=== PATIENT | male | born 1965 | race Caucasian/White ===

== ENCOUNTER 2024-07-17 07:05 | Day surgery (SDC) | payer BC ==
[~2024-07-17] VITALS: Ht 165.1 cm; Wt 77.9 kg
[~2024-07-17 07:05] MED LIST: LISI20 PO; Lactated Ringer's 1,000 ML ONE
[2024-07-17] MEDS ORDERED: Lactated Ringer's 1,000 ML IV ONE ×2 (07:41→08:25)
[2024-07-17] MEDS ORDERED: propofoL 20 ML IV ONE ×3 (07:41→09:07)
[2024-07-17] MEDS ORDERED: OMEP20ER (07:59)
[2024-07-17 10:03] VITALS: BP 124/85
--- NOTE | 2024-07-17 10:04 | NUR ---
07/17/24 1004 Sima Rai PT. VERBALIZES ABD. FEELING CRAMPY BUT TOLERABLE BUT HAS GOTTEN BETTER SINCE WAKING UP IN THE ENDO ROOM. PT. INSTRUCTED TO PASS OUT AIR IF FELT THE NEED BUT EVENTUALLY THE AIR WILL ABSORB.
== END 2024-07-17 09:53 | disposition home or self-care (01) ==
LOC: ORSCSDS 07:05
PROVIDERS: Surgery
PROC: 0DBN8ZX Excision of Sigmoid Colon, Via Natural or Artificial Opening Endoscopic, Diagnostic (ICD-10-PCS; principal; 2024-07-17 08:45)
DX: Z12.11 Encounter for screening for malignant neoplasm of colon (principal); D12.5 Benign neoplasm of sigmoid colon; K21.9 Gastro-esophageal reflux disease without esophagitis; I10 Essential (primary) hypertension; E78.5 Hyperlipidemia, unspecified; Z79.899 Other long term (current) drug therapy
CPT/HCPCS: 88305; J2704; J7120